=== PATIENT | female | born 1970 | race Caucasian/White ===

== ENCOUNTER 2017-09-04 12:26 | Emergency (ER) | payer OTHER ==
[~2017-09-04] VITALS: Ht 152.4 cm; Wt 81.0 kg
[2017-09-04] MEDS ORDERED: FAMOTIDINE 20 MG TABLET PO ONE (13:00)
[2017-09-04] MEDS ORDERED: FAMOTIDINE 20 MG TABLET ONE (13:02)
[2017-09-04 13:49] VITALS: BP 134/82
== END 2017-09-04 14:29 | disposition home or self-care (01) ==
LOC: ED 14:19
DX: L50.1 Idiopathic urticaria (principal); Z87.891 Personal history of nicotine dependence
CPT/HCPCS: 99283